=== PATIENT | male | born 1985 | race Caucasian/White ===

== ENCOUNTER 2021-07-14 11:51 | Emergency (ER) | payer BC ==
[2021-07-14] MEDS ORDERED: Sodium Chloride 0.9% 10 ML Syringe FLUSH PRN (13:11)
[2021-07-14] MEDS ORDERED: Sodium Chloride 0.9% 2.5 ML Syringe FLUSH PRN (13:11)
[2021-07-14] MEDS ORDERED: Alum Hydro/Mag Hydro/Simeth XS 15 ML, Metoclopramide 5 MG, Lidocaine 2% 5 ML PO ONE ×3 (13:11)
[2021-07-14] MEDS ORDERED: Pantoprazole 80 MG in Sodium Chloride 0.9% 10 ML IVPUSH ONE (13:11)
[2021-07-14] MEDS ORDERED: Sucralfate 1 GM Tab PO ONE (13:11)
[2021-07-14] MEDS ORDERED: Pantoprazole 40 MG Tab.CR PO SCH (13:28)
[2021-07-14 13:50] LABS: BLOOD UREA NITROGEN,BUN 10 mg/dL (7.0-18.0); CARBON DIOXIDE,CO2 22.3 mmol/L (21.0-32.0); CHLORIDE,CL 103 mmol/L (98-107); GLUCOSE RANDOM 91 mg/dL (74-106); LIPASE 150 U/L (73-393); SODIUM,NA 138 mmol/L (136-148)
[2021-07-14] MEDS ORDERED: Iopamidol 755 MG/ML 500 ML Multipack Bottle IVPUSH STA (14:39)
[2021-07-14] MEDS ORDERED: Ondansetron 4 MG/2 ML SDV IVPUSH ONE (14:57)
[2021-07-15] MEDS ORDERED: Pantoprazole 40 MG Tab.CR PO SCH (09:00)
== END 2021-07-14 16:36 | disposition home or self-care (01) ==
LOC: MW.ED 11:51
DX: K29.70 Gastritis, unspecified, without bleeding (principal)
CPT/HCPCS: 36415; 74177; 80053; 81003; 83690; 84484; 85025; 93005; 96374; 99284; A9270; J2405; Q9967

== ENCOUNTER 2021-08-03 13:00 | Day surgery (SDC) | payer BC ==
[~2021-08-03 13:00] MED LIST: Lactated Ringers 1,000 ML IV SCH
[2021-08-03] MEDS ORDERED: fentaNYL 100 MCG/2 ML SDV ONE (14:20)
[2021-08-03] MEDS ORDERED: Propofol 200 MG/20 ML SDV ONE ×2 (14:20→14:56)
[2021-08-03] MEDS ORDERED: Lidocaine 2% 5 ML SDV ONE (14:21)
[2021-08-03] MEDS ORDERED: Glycopyrrolate 0.2 MG/ML SDV ONE (14:40)
[2021-08-03] MEDS ORDERED: Ketamine HCL/NACL, ISO-OSM 50 MG/5 ML Syringe ONE (14:41)
== END 2021-08-03 15:54 | disposition home or self-care (01) ==
LOC: MW.SDS 13:00
PROVIDERS: ATTEND Surgery
DX: Z12.11 Encounter for screening for malignant neoplasm of colon (principal); D12.5 Benign neoplasm of sigmoid colon; K31.89 Other diseases of stomach and duodenum; I78.1 Nevus, non-neoplastic; K25.9 Gastric ulcer, unspecified as acute or chronic, without hemorrhage or perforation; K29.70 Gastritis, unspecified, without bleeding; K21.9 Gastro-esophageal reflux disease without esophagitis; F17.210 Nicotine dependence, cigarettes, uncomplicated; Z80.0 Family history of malignant neoplasm of digestive organs; Z79.899 Other long term (current) drug therapy; Z90.49 Acquired absence of other specified parts of digestive tract
CPT/HCPCS: 43239; 45385; J2704; J3010; J3490; J7120; 00813

== ENCOUNTER 2024-01-04 10:19 | Day surgery (SDC) | payer BC ==
[2024-01-04] MEDS: Lactated Ringers 1,000 ML IV SCH (11:22)
[2024-01-04] MEDS ORDERED: Lidocaine 2% 5 ML SDV ONE (11:31)
[2024-01-04] MEDS ORDERED: Propofol 200 MG/20 ML SDV ONE ×3 (11:31→11:49)
[2024-01-04] MEDS ORDERED: fentaNYL 100 MCG/2 ML SDV ONE (11:49)
[2024-01-04] MEDS ORDERED: Esmolol 100 MG/10 ML SDV ONE (11:55)
[2024-01-04] MEDS ORDERED: Dexamethasone 4 MG/ML 5 ML MDV ONE (11:56)
[2024-01-04] MEDS ORDERED: Ondansetron 4 MG/2 ML SDV ONE (12:00)
== END 2024-01-04 12:40 | disposition home or self-care (01) ==
LOC: MW.SDS 10:19
PROVIDERS: ATTEND Surgery
DX: K21.00 Gastro-esophageal reflux disease with esophagitis, without bleeding (principal); K29.50 Unspecified chronic gastritis without bleeding; K31.7 Polyp of stomach and duodenum; K44.9 Diaphragmatic hernia without obstruction or gangrene; F17.210 Nicotine dependence, cigarettes, uncomplicated; Z79.899 Other long term (current) drug therapy; R10.13 Epigastric pain; K82.8 Other specified diseases of gallbladder
CPT/HCPCS: 43239; 76705; J1100; J2405; J2704; J3010; J3490; J7120; 00731

== ENCOUNTER 2024-01-25 08:58 | Emergency (ER) | payer BC ==
[2024-01-25] MEDS ORDERED: Sodium Chloride 0.9% 2.5 ML Syringe FLUSH PRN (09:06)
[2024-01-25] MEDS ORDERED: Sodium Chloride 0.9% 20 ML SDV IV PRN (09:06)
[2024-01-25] MEDS ORDERED: Sodium Chloride 0.9% 10 ML Syringe FLUSH PRN (09:06)
[2024-01-25] MEDS: Famotidine 20 MG/2 ML SDV IVPUSH ONE (09:19)
[2024-01-25] MEDS: Sodium Chloride 0.9% 1,000 ML IV ONE (09:19)
[2024-01-25] MEDS: Ondansetron 4 MG/2 ML SDV IVPUSH ONE (09:19)
[2024-01-25] MEDS: HYDROmorphone 0.5 MG/0.5 ML Syringe IVPUSH ONE (09:24)
[2024-01-25 09:29] LABS: BASOPHILS ABSOLUTE AUTO 0.02 K/uL (0.00-0.20); BASOPHILS PERCENT AUTO 0.3 % (0.0-1.0); EOSINOPHILS ABSOLUTE AUTO 0.33 K/uL (0.00-0.45); HEMATOCRIT 45.3 % (42.0-52.0); HEMOGLOBIN 15.2 g/dL (14.0-18.0); IMMATURE GRAN ABSOLUTE AUTO 0.02 K/uL (0.00-0.05); IMMATURE GRAN PERCENT AUTO 0.3 % (0.0-0.4); LYMPHOCYTES ABSOLUTE AUTO 1.31 K/uL (1.00-4.80); MEAN CORPUSCULAR HEMOGLOBIN 28.7 pg (28.0-32.0); MEAN CORPUSCULAR HGB CONC 33.6 g/dL (32.0-36.0); MEAN CORPUSCULAR VOLUME 85.5 fL (83.0-99.0); MEAN PLATELET VOLUME 8.7 fL (9.4-12.4); MONOCYTES ABSOLUTE AUTO 0.43 K/uL (0.00-0.80); MONOCYTES PERCENT AUTO 6.6 % (0.0-8.0); NEUTROPHILS ABSOLUTE AUTO 4.43 K/uL (1.80-7.70); NEUTROPHILS PERCENT AUTO 67.8 % (41.0-71.0); PLATELET COUNT,PLT 257 K/uL (150-400); WHITE BLOOD CELL COUNT,WBC 6.54 K/uL (3.9-11.3)
[2024-01-25 09:36] LABS: INR < 0.93 (0.86-1.11)
[2024-01-25] MEDS: droPERidol 5 MG/2 ML SDV IVPUSH ONE (09:49)
[2024-01-25 09:52] LABS: A/G RATIO 1.2 (0.9-1.6); ALBUMIN 3.8 g/dL (3.4-5.0); BILIRUBIN TOTAL 0.4 mg/dL (0.2-1.0); CALCIUM 9.1 mg/dL (8.5-10.1); CARBON DIOXIDE,CO2 29.3 mmol/L (21.0-32.0); EST CRCL DRUG DOSING (CG) 104.43 mL/min; POTASSIUM,K 4.3 mmol/L (3.5-5.1)
[2024-01-25 10:08] LABS: APPEARANCE,URINE CLEAR; BILIRUBIN,URINE NEGATIVE (NEGATIVE); COLOR,URINE YELLOW; GLUCOSE,URINE NEGATIVE (NEGATIVE); KETONES,URINE NEGATIVE (NEGATIVE); LEUKOCYTE ESTERASE,URINE NEGATIVE (NEGATIVE); NITRITE,URINE NEGATIVE (NEGATIVE); OCCULT BLOOD,URINE NEGATIVE (NEGATIVE); PROTEIN,URINE NEGATIVE (NEGATIVE); UROBILINOGEN,URINE 0.2 EU/dL (<2.0)
[2024-01-25] MEDS: Iopamidol 755 MG/ML 500 ML Multipack Bottle IVPUSH STA (10:10)
[2024-01-25] MEDS: Alum Hydro/Mag Hydro/Simeth XS 15 ML, Lidocaine 2% 5 ML PO ONE (10:59)
[2024-01-25] MEDS: Ketorolac 30 MG/ML SDV IVPUSH ONE (11:19)
[2024-01-25] MEDS ORDERED: Morphine 4 MG/ML Syringe IVPUSH PRN (11:32)
== END 2024-01-25 12:54 | disposition home or self-care (01) ==
LOC: MW.ED 08:58
DX: R10.13 Epigastric pain (principal); R10.11 Right upper quadrant pain; R10.84 Generalized abdominal pain; R14.0 Abdominal distension (gaseous); K21.9 Gastro-esophageal reflux disease without esophagitis; E66.9 Obesity, unspecified; Z79.899 Other long term (current) drug therapy; Z75.8 Other problems related to medical facilities and other health care
CPT/HCPCS: 36415; 74177; 80053; 81003; 83605; 83690; 85025; 85610; 96361; 96374; 96375; 99284; A9270; J1170; J1790; J1885; J2405; J3490; J7030; Q9967

== ENCOUNTER 2024-02-06 09:25 | Day surgery (SDC) | payer BC ==
[~2024-02-06 09:25] MED LIST changes: +Albuterol 0.083% 2.5 MG/3 ML Neb Soln NEB PRN; -Lactated Ringers 1,000 ML IV SCH; +Metoclopramide 10 MG/2 ML SDV IVPUSH PRN; +Morphine 2 MG/ML SYRINGE IVPUSH PRN; +Naloxone 0.4 MG/ML SDV IVPUSH PRN; +Ondansetron 4 MG/2 ML SDV IVPUSH PRN; +ceFAZolin 2 GM in Sodium Chloride 0.9% 50 ML IV ONE; +droPERidol 5 MG/2 ML SDV IVPUSH PRN
[2024-02-06] MEDS: Scopalamine 1mg/3day Transdermal Patch TOP ONE (09:45)
[2024-02-06] MEDS: Pregabalin 75 MG Cap PO SCH (09:45)
[2024-02-06] MEDS: Lactated Ringers 1,000 ML IV SCH (09:50)
[2024-02-06] MEDS ORDERED: Ondansetron 4 MG/2 ML SDV ONE ×2 (10:07→11:43)
[2024-02-06] MEDS ORDERED: fentaNYL 100 MCG/2 ML SDV ONE (10:07)
[2024-02-06] MEDS ORDERED: Lidocaine 2% 5 ML SDV ONE (10:07)
[2024-02-06] MEDS ORDERED: Rocuronium Bromide 50 MG/5 ML Syringe ONE ×3 (10:07→12:18)
[2024-02-06] MEDS ORDERED: Ketorolac 30 MG/ML SDV ONE ×2 (10:07→11:44)
[2024-02-06] MEDS ORDERED: Dexamethasone 4 MG/ML 5 ML MDV ONE ×2 (10:07→11:43)
[2024-02-06] MEDS ORDERED: Sugammadex Sodium 200 MG/2 ML VIAL IV ONE (10:07)
[2024-02-06] MEDS ORDERED: Propofol 200 MG/20 ML SDV ONE (10:07)
[2024-02-06] MEDS ORDERED: ceFAZolin 1 GM Vial ONE (10:08)
[2024-02-06] MEDS ORDERED: Ropivacaine 0.5% 5 MG/ML 30 ML SDV ONE (10:10)
[2024-02-06] MEDS ORDERED: Bupivacaine 0.25% 30 ML SDV ONE ×2 (10:10→10:12)
[2024-02-06] MEDS ORDERED: Ketamine HCL/NACL, ISO-OSM 50 MG/5 ML Syringe ONE (10:17)
[2024-02-06] MEDS ORDERED: Magnesium Sulfate (4.06 MEQ/ML) 5 GM/10 ML SDV ONE (11:23)
[2024-02-06] MEDS: Pregabalin 75 MG Cap ONE (12:19)
[2024-02-06] MEDS ORDERED: dexmedeTOMIDine HCl 200 MCG/2 ML SDV ONE (12:22)
[2024-02-06] MEDS: HYDROmorphone 1 MG/ML Syringe IVPUSH PRN (13:05)
[2024-02-06] MEDS: fentaNYL 50 MCG/ML SDV IVPUSH PRN (13:07)
[2024-02-06] MEDS: Acetaminophen/HYDROcodone 325-5 MG Tab PO ONE (14:26)
[2024-02-06] MEDS: Acetaminophen/HYDROcodone 325-5 MG Tab ONE (14:27)
== END 2024-02-06 14:40 | disposition home or self-care (01) ==
LOC: MW.SDS 09:25
PROVIDERS: ATTEND Surgery
DX: K80.44 Calculus of bile duct with chronic cholecystitis without obstruction (principal); K21.9 Gastro-esophageal reflux disease without esophagitis; E66.9 Obesity, unspecified; F17.210 Nicotine dependence, cigarettes, uncomplicated; Z79.899 Other long term (current) drug therapy
CPT/HCPCS: 47562; A9270; J0131; J0665; J0690; J1100; J1170; J1885; J2405; J2704; J2795; J3010; J3475; J3490; J7120; 00790; 64488